=== PATIENT | female | born 1955 ===

== ENCOUNTER 2018-02-28 07:35 | Day surgery (SDC) | payer MEDICAID ==
[2017-08-17 12:26] VITALS: BMI 34.7
[2018-02-28] MEDS ORDERED: Lactated Ringer's 500 ML IV ONE (07:45)
[2018-02-28 08:07] VITALS: TEMP 96.8; O2SAT 96
[2018-02-28] MEDS ORDERED: Propofol 10 mg/ml Inj (20 ML) ONE (09:14)
[2018-02-28 10:01] VITALS: BP 102/64; PULSE 79; RESP 16
== END 2018-02-28 10:44 | disposition home or self-care (01) ==
LOC: H.ENDO 07:35
PROVIDERS: ATTEND Internal Medicine Gastroenterology
DX: Z12.11 Encounter for screening for malignant neoplasm of colon (principal); K29.70 Gastritis, unspecified, without bleeding; B96.81 Helicobacter pylori [H. pylori] as the cause of diseases classified elsewhere; K31.89 Other diseases of stomach and duodenum; K64.8 Other hemorrhoids; R12 Heartburn; E11.9 Type 2 diabetes mellitus without complications; Z79.84 Long term (current) use of oral hypoglycemic drugs
CPT/HCPCS: 43239; 45378; 82948; 88305; J2001; J2704; J3010; J7120